=== PATIENT | female | born 1980 | race Caucasian/White ===

== ENCOUNTER 2020-05-30 14:17 | Emergency (ER) | payer BC ==
--- NOTE | 2020-05-30 15:16 | EDM.PDOC ---
ED HPI GENERAL MEDICAL PROBLEM - General Chief Complaint: Chest Pain Stated Complaint: CHEST PAIN/BACK PAIN/HEADACHE Time Seen by Provider: 05/30/20 14:39 Source of Information: Reports: Patient History Limitations: Reports: No Limitations, Other (ED vital signs reveal a temp of 99.9, pulse of 99, respiratory rate 18, blood pressure 150/103, pulse ox 100% on room air.) - History of Present Illness INITIAL COMMENTS - FREE TEXT/NARRATIVE: 39-year-old female presents to the emergency department complaints of generalized chest pain. She states that she developed this last evening at about 11:00 when she is laying in bed watching TV. She states that it is a burning pain all across her chest. She did state that it caused her to have some shortness of breath however it feels better when taking deep breaths, she denies diaphoresis, palpitations radiation to her neck or jaw. She also states at that time she developed right upper quadrant abdominal pain and pain into her right shoulder blade. She is a 1 pack a day smoker x10 years. She drinks a pot of coffee a day. And she admits to having a high anxiety level. She had a hysterectomy a few years ago and is not on any hormone replacement. She states that last night for supper she had spaghetti with meat sauce at about 6:30 PM. She does still have her gallbladder. Chest Pain Score (Numeric/FACES): 6 - Related Data Allergies Allergy/AdvReac Type Severity Reaction Status Date / Time acetaminophen [From Vicodin] Allergy Vomiting Verified 05/30/20 14:45 hydrocodone [From Vicodin] Allergy Vomiting Verified 05/30/20 14:45 Home Meds: Home Meds Azithromycin [Zithromax] 250 mg PO DAILY #6 tablet 05/30/20 [Rx] Past Medical History - Past Surgical History HEENT Surgical History: Reports: Oral Surgery Other GI Surgeries/Procedures: hemmorhoidectomy Female Surgical History: Reports: Section, Oophorectomy Social & Family History - Tobacco Use Tobacco Use Status *Q: Current Every Day Tobacco User Years of Tobacco use: 10 Packs/Tins Daily: 1 - Caffeine Use Caffeine Use: Reports: Coffee - Recreational Drug Use Recreational Drug Use: No ED ROS GENERAL - Review of Systems Review Of Systems: See Below Constitutional: Denies: Fever, Chills, Diaphoresis HEENT: Reports: No Symptoms Respiratory: Reports: Shortness of Breath. Denies: Wheezing, Pleuritic Chest Pain, Cough Cardiovascular: Reports: Chest Pain. Denies: Blood Pressure Problem, Dyspnea on Exertion, Edema, Lightheadedness, Palpitations Endocrine: Reports: No Symptoms GI/Abdominal: Reports: No Symptoms, Abdominal Pain (right upper quadrant). Denies: Constipation, Diarrhea, Nausea, Vomiting : Reports: No Symptoms Musculoskeletal: Reports: Shoulder Pain (right scapula) Skin: Reports: No Symptoms Neurological: Reports: No Symptoms Psychiatric: Reports: Anxiety Hematologic/Lymphatic: Reports: No Symptoms Immunologic: Reports: No Symptoms ED EXAM, GENERAL - Physical Exam Exam: See Below Exam Limited By: No Limitations General Appearance: Alert, WD/WN, Anxious Eye Exam: Bilateral Eye: PERRL Ears: Normal External Exam, Hearing Grossly Normal Nose: Normal Inspection Throat/Mouth: Normal Inspection, Normal Voice, No Airway Compromise Head: Atraumatic, Normocephalic Neck: Normal Inspection, Supple, Non-Tender, Full Range of Motion Respiratory/Chest: No Respiratory Distress, Lungs Clear, Normal Breath Sounds, No Accessory Muscle Use, Chest Non-Tender Cardiovascular: Normal Peripheral Pulses, Regular Rate, Rhythm, No Edema, No Murmur Peripheral Pulses: 2+: Radial (L), Radial (R) GI/Abdominal: Normal Bowel Sounds, Soft, No Distention, Tender (right upper quad) (Female) Exam: Deferred Rectal (Female) Exam: Deferred Back Exam: Normal Inspection, Full Range of Motion Extremities: Normal Inspection, Normal Range of Motion, Non-Tender, No Pedal Edema, Normal Capillary Refill Neurological: Alert, Oriented, Normal Cognition Psychiatric: Normal Affect, Normal Mood, Anxious Skin Exam: Warm, Dry, Intact, Normal Color, No Rash Lymphatic: No Adenopathy #1 Interpretation EKG Date: 05/30/20 Time: 15:19 Rhythm: NSR Rate (Beats/Min): 77 [place]: Normal P-Wave: Present QRS: Normal ST-T: Normal QT: Normal Comparison: NA - No Prior EKG (Has been reviewed by Dr. Garcia and he agrees.) Course - Vital Signs Text/Narrative:: 39-year-old female presenting the ER with complaints of generalized chest pain that developed at about 2300 last evening when she was laying in bed. Patient states it came on suddenly and felt like a stabbing/burning pain all across her chest. She did report dyspnea with this however states that it feels better to take a deep breath. Pain is not worsened orally relieved with palpation. Patient also reports that she developed right upper quadrant and right shoulder pain at this time and still has right upper quadrant tenderness with palpation. She states she does still have her gallbladder. I have ordered a CBC CMP, troponin, EKG, and a portable chest x-ray to rule out cardiac origin. However I suspect the source of her discomfort is gallbladder disease so I have ordered a amylase, lipase, and a right upper quadrant ultrasound. Of note patient is a 1 pack-a-day smoker x10 years, she does drink a pot of coffee a day, and she does admit to having high anxiety.. She also reports that she had a hysterectomy a few years ago and is not taking hormones. Last Recorded V/S: Last Vital Signs Temp 99.9 F 05/30/20 14:37 Pulse 99 05/30/20 14:37 Resp 18 05/30/20 14:37 BP 150/103 H 05/30/20 14:37 Pulse Ox 100 05/30/20 14:37 - Orders/Labs/Meds Orders: Active Orders 24 hr Category Date Time Status EKG Documentation Completion [RC] STAT Care 05/30/20 15:03 Active Labs: Laboratory Tests 05/30/20 05/30/20 Range/Units 15:00 15:00 WBC 8.72 (3.98-10.04) K/mm3 RBC 5.37 H (3.98-5.22) M/mm3 Hgb 15.8 H (11.2-15.7) gm/dl Hct 47.0 H (34.1-44.9) % MCV 87.5 (79.4-94.8) fl MCH 29.4 (25.6-32.2) pg MCHC 33.6 (32.2-35.5) g/dl RDW Std Deviation 43.9 (36.4-46.3) fL Plt Count 266 (182-369) K/mm3 MPV 10.2 (9.4-12.3) fl Neut % (Auto) 64.4 (34.0-71.1) % Lymph % (Auto) 27.9 (19.3-51.7) % [place] % (Auto) 4.6 L (4.7-12.5) % Eos % (Auto) 2.8 (0.7-5.8) Baso % (Auto) 0.2 (0.1-1.2) % Neut # (Auto) 5.62 (1.56-6.13) K/mm3 Lymph # (Auto) 2.43 (1.18-3.74) K/mm3 [place] # (Auto) 0.40 H (0.24-0.36) K/mm3 Eos # (Auto) 0.24 (0.04-0.36) K/mm3 Baso # (Auto) 0.02 (0.01-0.08) K/mm3 Sodium 143 (136-145) mEq/L Potassium 4.1 (3.5-5.1) mEq/L Chloride 104 (98-107) mEq/L Carbon Dioxide 28 (21-32) mEq/L Anion Gap 15.1 H (5-15) BUN 8 (7-18) mg/dL Creatinine 0.7 (0.55-1.02) mg/dL Est Cr Clr Drug Dosing 110.53 mL/min Estimated GFR (MDRD) > 60 (>60) mL/min BUN/Creatinine Ratio 11.4 L (14-18) Glucose 96 (74-106) mg/dL Calcium 9.7 (8.5-10.1) mg/dL Magnesium 2.2 (1.8-2.4) mg/dl Total Bilirubin 0.3 (0.2-1.0) mg/dL AST 14 L (15-37) U/L ALT 32 (14-59) U/L Alkaline Phosphatase 109 (46-116) U/L Troponin I < 0.017 (0.00-0.056) ng/mL Total Protein 8.3 H (6.4-8.2) g/dl Albumin 4.5 (3.4-5.0) g/dl Globulin 3.8 gm/dL Albumin/Globulin Ratio 1.2 (1-2) Amylase 56 (25-115) U/L Lipase 161 (73-393) U/L - Re-Assessments/Exams Free Text/Narrative Re-Assessment/Exam: 05/30/20 16:17 Labs reveal WBC 8.72, hemoglobin 15.8, hematocrit 47.0, anion gap 15.1, total bilirubin 0.3, troponin less than 0.017, amylase 56, lipase 161. Limited abdominal ultrasound radiologist impression: 1. Contracted gallbladder. No definite cholelithiasis or bili duct dilation is seen. 2. No additional abnormality is appreciated on the right upper quadrant abdominal sound. Portable view of the chest radiologist impression: 1. Difficult to exclude minimal pneumonia within the right medial lung base. Please correlate with the patient's symptoms. 2. Portable chest x-ray is otherwise unremarkable. Patient's right upper quadrant and right shoulder discomfort is likely due to the patient having pneumonia causing irritation of the pleural lining. Patient will be discharged home with a prescription for Zithromax 5-day course. She will be instructed that if she is not better in about a week to follow-up with her primary care provider Varsha Fontanez. Departure - Departure Time of Disposition: 16:19 Disposition: Home, Self-Care 01 Condition: Good Clinical Impression: Pneumonia Qualifiers: Pneumonia type: due to unspecified organism Laterality: right Lung location: lower lobe of lung Qualified Code(s): J18.9 - Pneumonia, unspecified organism Prescriptions: Azithromycin [Zithromax] 250 mg PO DAILY #6 tablet Instructions: Community-Acquired Pneumonia, Adult, [id number] Referrals: PCP,None [Primary Care Provider] - Forms: ED Department Discharge Additional Instructions: You were seen in the emergency department today with complaints of chest pain that started last evening. Full cardiac work-up was completed and this was unremarkable for cardiac origin of your chest pain. We also completed a right upper quadrant ultrasound to rule out acute gallbladder. This was unremarkable as well with accompanying lab work. It was however discovered that you do have pneumonia in your right lung and this is likely the cause of your chest pain, right upper quadrant abdominal pain and right shoulder blade pain. Treatment for this is Zithromax 500 mg today then 250 mg daily for the remainder of the pack. Also recommend that you take ibuprofen 600 mg every 6 hours as needed for discomfort. This will also help to decrease inflammation in the lining of your lungs. Strongly recommended that you quit smoking. If you are not feeling better in about a week follow-up with your primary care physician Varsha Fontanez. Should your condition worsen or change please return to the emergency department. Sepsis Event Note (ED) - Evaluation Sepsis Screening Result: No Definite Risk - Focused Exam Vital Signs: Vital Signs Temp Pulse Resp BP Pulse Ox 05/30/20 14:37 99.9 F 99 18 150/103 H 100 - My Orders Last 24 Hours: My Active Orders 05/30/20 15:03 EKG Documentation Completion [RC] STAT - Assessment/Plan Last 24 Hours: My Active Orders 05/30/20 15:03 EKG Documentation Completion [RC] STAT
--- NOTE | 2020-05-30 15:47 | CR ---
Chest: Portable view of the chest was obtained. Comparison: No prior chest imaging is available. Heart size and mediastinum are normal. Questionable density within the medial right lung base. Lungs otherwise are clear. Bony structures are unremarkable. Impression: 1. Difficult to exclude minimal pneumonia within the medial right lung base. Please correlate with the patient's symptoms. 2. Portable chest x-ray is otherwise unremarkable. Diagnostic code #3
--- NOTE | 2020-05-30 16:01 | US ---
Limited abdominal ultrasound: Multiple real time images of the upper right abdomen were obtained. Comparison: No prior abdominal imaging is available. Pancreas appears within normal limits. Liver shows no focal abnormality. Gallbladder is not well distended. No discrete shadowing findings are seen. No biliary duct dilatation is seen. Right kidney shows no hydronephrosis or mass. Right kidney has a length of 13.5 cm. Main portal vein shows normal hepatopedal flow. Impression: 1. Contracted gallbladder. No definite cholelithiasis or biliary duct dilatation is seen. 2. No additional abnormality is appreciated on right upper quadrant abdominal ultrasound. Diagnostic code #2
== END 2020-05-30 17:00 | disposition home or self-care (01) ==
LOC: JD.ED 14:17
DX: J18.9 Pneumonia, unspecified organism (principal); Z88.6 Allergy status to analgesic agent; Z88.5 Allergy status to narcotic agent; Z72.0 Tobacco use
CPT/HCPCS: 36415; 71045; 71045-26; 76705; 76705-26; 80053; 82150; 83690; 83735; 84484; 85025; 93005; 93010; 99283; 99285-25

== ENCOUNTER 2021-03-27 11:42 | Emergency (ER) | payer BC ==
--- NOTE | 2021-03-27 14:06 | EDM.PDOC ---
ED HPI GENERAL MEDICAL PROBLEM - General Chief Complaint: Back Pain or Injury Stated Complaint: BACK PAIN Time Seen by Provider: 03/27/21 12:26 Source of Information: Reports: Patient History Limitations: Reports: No Limitations - History of Present Illness INITIAL COMMENTS - FREE TEXT/NARRATIVE: The patient presents with low back pain. The patient said she was sitting last night and felt a pop in her back and had sever pain. It is in the middle of her lower back. She has no numbness or weakness. She does not have much pain sitting but when she gets up she has more pain. There is not more pain to the left or right side of her back. She has no bowel or bladder problems. She has no numbness or weakness. Onset: Sudden Duration: Day(s): (last night) Location: Reports: Back Quality: Reports: Sharp Severity: Moderate Improves with: Reports: Immobilization Worsens with: Reports: Movement Associated Symptoms: Reports: No Other Symptoms Lower Back Pain Score (Numeric/FACES): 8 - Related Data Allergies Allergy/AdvReac Type Severity Reaction Status Date / Time acetaminophen [From Vicodin] Allergy Vomiting Verified 03/27/21 11:57 hydrocodone [From Vicodin] Allergy Vomiting Verified 03/27/21 11:57 Home Meds: Home Meds Cyclobenzaprine [Flexeril] 10 mg PO TID PRN #20 tab 03/27/21 [Rx] Cyclobenzaprine [Flexeril] 10 mg PO TID PRN #20 tab 03/27/21 [Rx] Varenicline Tartrate 1 mg PO BID 03/27/21 [History] Past Medical History [employer] History: Reports: Endometriosis - Infectious Disease History Infectious Disease History: Reports: Novel Coronavirus - Past Surgical History HEENT Surgical History: Reports: Oral Surgery Other GI Surgeries/Procedures: hemmorhoidectomy Female Surgical History: Reports: Section, Oophorectomy Social & Family History - Tobacco Use Tobacco Use Status *Q: Current Every Day Tobacco User Years of Tobacco use: 15 Packs/Tins Daily: 0.5 - Caffeine Use Caffeine Use: Reports: Coffee - Alcohol Use Number of Drinks Per Day: 7 - Recreational Drug Use Recreational Drug Use: No ED ROS GENERAL - Review of Systems Review Of Systems: See Below Constitutional: Reports: No Symptoms HEENT: Reports: No Symptoms Respiratory: Reports: No Symptoms Cardiovascular: Reports: No Symptoms Endocrine: Reports: No Symptoms GI/Abdominal: Reports: No Symptoms : Reports: No Symptoms Musculoskeletal: Reports: Back Pain ED EXAM,LOWER BACK PAIN/INJURY - Physical Exam Exam: See Below Exam Limited By: No Limitations General Appearance: Alert, No Apparent Distress Ears: Normal External Exam Nose: Normal Inspection Head: Atraumatic, Normocephalic Neck: Normal Inspection Respiratory/Chest: No Respiratory Distress, Lungs Clear, Normal Breath Sounds Cardiovascular: Regular Rate, Rhythm, No Edema, No Murmur GI/Abdominal: Soft, Non-Tender, No Organomegaly, No Mass Back Exam: Other (Mild pain upon palpation to the lower back) Extremities: Normal Inspection Neurological: Alert, No Motor/Sensory Deficits, Oriented x 3 Course - Vital Signs Last Recorded V/S: Last Vital Signs Temp 98.6 F 03/27/21 11:56 Pulse 90 03/27/21 11:56 Resp 20 03/27/21 11:56 BP 161/92 H 03/27/21 11:56 Pulse Ox 100 03/27/21 11:56 - Orders/Labs/Meds Orders: Active Orders 24 hr Category Date Time Status Lumbar Spine 2 or 3V [CR] Stat Exams 03/27/21 12:51 Taken - Re-Assessments/Exams Free Text/Narrative Re-Assessment/Exam: 03/27/21 14:07 I ordered an x-ray of her back and it shows nothing acute. She still has pain. I have ordered an outpatient MRI and some flexeril. Departure - Departure Time of Disposition: 14:10 Disposition: Home, Self-Care 01 Condition: Good Clinical Impression: Low back pain Qualifiers: Chronicity: acute Back pain laterality: bilateral Sciatica presence: without sciatica Qualified Code(s): M54.50 - Low back pain, unspecified - Discharge Information *PRESCRIPTION DRUG MONITORING PROGRAM REVIEWED*: Not Applicable *COPY OF PRESCRIPTION DRUG MONITORING REPORT IN PATIENT KYE: Not Applicable Prescriptions: Cyclobenzaprine [Flexeril] 10 mg PO TID PRN #20 tab PRN Reason: Pain Cyclobenzaprine [Flexeril] 10 mg PO TID PRN #20 tab PRN Reason: Pain Referrals: Varsha Fontanez PA-C [Primary Care Provider] - 1 Week Additional Instructions: Take an antiinflammatory such as motrin or aleve. If that does not help, try the flexeril every 8 hours as needed for pain. I have put in an order for an MRI of your lumbar spine. Someone from radiology should call you early next we ek to make an appointment. Follow up with your doctor within a week. Please return if you are worse. Sepsis Event Note (ED) - Focused Exam Vital Signs: Vital Signs Temp Pulse Resp BP Pulse Ox 03/27/21 11:56 98.6 F 90 20 161/92 H 100 - My Orders Last 24 Hours: My Active Orders 03/27/21 12:51 Lumbar Spine 2 or 3V [CR] Stat - Assessment/Plan Last 24 Hours: My Active Orders 03/27/21 12:51 Lumbar Spine 2 or 3V [CR] Stat
--- NOTE | 2021-03-27 15:00 | CR ---
Lumbar spine: AP and lateral views of the lumbar spine were obtained. Comparison: No prior lumbar spine imaging is available. Vertebral body heights and disc spaces are maintained. Mild scattered endplate osteophytes are seen. Pedicles are intact. Visualized transverse and spinous processes are intact. Mild degenerative change is seen within both sacroiliac joints. Impression: 1. Mild scattered endplate osteophytes as well as mild degenerative change within the sacroiliac joints. Diagnostic code #2
== END 2021-03-27 14:31 | disposition home or self-care (01) ==
LOC: JD.ED 11:42
DX: M54.50 Low back pain, unspecified (principal); Z88.5 Allergy status to narcotic agent; Z88.8 Allergy status to other drugs, medicaments and biological substances; Z72.0 Tobacco use
CPT/HCPCS: 72100; 72100-26; 99283-25